=== PATIENT | male | born 1980 | race Two or more races ===

== ENCOUNTER 2020-10-04 14:28 | Emergency (ER) | payer MEDICAID, SELFPAY ==
[2020-10-04 14:29] VITALS: BP 115/77; PULSE 95; RESP 18; TEMP 36.6; O2SAT 99; BMI 25.8
--- NOTE | 2020-10-04 14:30 | CT_ITS ---
PROCEDURE: CT HEAD/BRAIN WO CON CLINICAL INDICATION: head injury, LOC Wall in a patient head. Patient states no loss consciousness. There is a left scalp laceration/knot. COMPARISON: No exams were available for comparison TECHNIQUE: Axial images obtained. All CT scans at the facility use one or more dose reduction, viz: automated exposure control, ma/kV adjustment per patient size (including targeted exams where dose is matched to indication, i.e. head), or iterative reconstruction technique. FINDINGS: There is extensive motion without accentuates bony or artifact at the skull base and lower brain. There is no hydrocephalus. There is no intracranial hemorrhage. There is no intracranial mass. There is no CT evidence of acute infarct. (Clinical exam and MRI are more sensitive for detection of infarct.) There is a large left scalp hematoma there is no underlying skull fracture. There is no CT evidence of contusion in the brain. There is no calvarial fracture. IMPRESSION: Large left scalp hematoma without underlying acute abnormality. Dictated by: More Lopez 10/04/2020 14:55 More Lopez in [place] 10/04/2020 14:55
--- NOTE | 2020-10-04 14:41 | [facility].EDGENADL ---
ED Disposition Clinical Impression: Closed head injury Qualifiers: Encounter type: initial encounter Qualified Code(s): S09.90XA - Unspecified injury of head, initial encounter Scalp laceration Qualifiers: Encounter type: initial encounter Qualified Code(s): S01.01XA - Laceration without foreign body of scalp, initial encounter Disposition: Home, Self-Care Condition on Discharge: Good Instructions: DI for Concussion, DI for Laceration Repair Additional Instructions: You have been evaluated for head injury, scalp laceration. Please have sunitha removed in 7 to 10 days. You also have a concussion, closed head injury. Please avoid activities that cause headache. Take Tylenol and Motrin. Follow-up with your primary care doctor in 1 to 2 days. Return to the emergency department for any new or worsening symptoms. Referrals: Provider,Referral, [Primary Care Provider] - Time of Disposition: 14:45 - Critical Care Critical Care Time: No Attestation: On , the high probability of a clinically significant, sudden or life threatening deterioration of the following system(s) required my full and direct attention, intervention and personal management. The time I documented below is in addition to time spent performing reported procedures but includes the following listed in this critical care notation. Medical Decision Making - Medical Records Medical records reviewed: Yes: I reviewed the patient's medical records. - Robinson Inquiry Pt receiving controlled substance: No Vital Signs: 10/04/20 14:29 10/04/20 14:54 Temperature 97.8 F Temperature Source Oral Pulse Rate [Left Radial] 95 H 94 H Respiratory Rate 18 Blood Pressure [Right Arm] 115/77 126/90 Blood Pressure Mean [Right Arm] 89 102 Blood Pressure Source [Right Arm] Automatic Cuff Automatic Cuff Blood Pressure Position [Right Arm] Sitting Sitting 02 Sat by Pulse Oximetry 99 100 Oxygen Delivery Method Room Air Room Air Orders (Tests/Meds): ED MEDICATIONS Discontinued Medications Generic Name Dose Route Start Last Admin Trade Name Freq PRN Reason Stop Dose Admin Lidocaine HCl 5 ml 10/04/20 15:00 10/04/20 15:03 Lidocaine 1% 10ml Mdv SQ 10/04/20 15:01 5 ml ONCE ONE Administration Medical Decision Narrative: In summary this is a 40-year-old male presenting to the emergency department with head injury, scalp laceration. Patient clinically stable on arrival. Vital signs within normal limits. He has significant boggy nature to the left upper scalp. Concern for more significant injury. Will obtain noncontrast head CT. Last tetanus was within 1 year. Will not update today. Laceration copiously irrigated with normal saline. Repaired with 4 sunitha. Procedure well-tolerated. Head CT unremarkable. No intracranial bleed. No skull fracture. Patient counseled on concussion management. Instructed he will need to have sunitha removed in 7 to 10 days. Given return precautions. Stable for discharge. General Adult HPI - General Chief complaint: Wound/Laceration Stated complaint: laceration Time Seen by Provider: 10/04/20 14:41 Mode of Arrival: Family Vehicle Limitations: No Limitations Description of Symptoms (Recalled from ER Triage Doc. 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 Denies loc, c/o dizziness since. - History of Present Illness HPI narrative: 40-year-old male presenting to the emergency department with head injury. He was hanging a picture frame just prior to arrival when something fell off of the wall and struck him on the left upper scalp. He had immediate sharp pain. Now dull and throbbing. Had a laceration that was bleeding a large amount. His friend was able to apply pressure to get the bleeding to stop. Does not believe he lost consciousness. No other injuries obtained. Particularly no neck pain. No numbness or weakness in his arms. No visi
--- NOTE | 2020-10-04 14:43 | PC.NURSE ---
Pt with rad.
[2020-10-04 14:54] VITALS: BP 126/90; PULSE 94; O2SAT 100
[2020-10-04 16:09] VITALS: BP 115/79; PULSE 96; RESP 18; TEMP 36.6; O2SAT 100
== END 2020-10-04 16:09 | disposition home or self-care (01) ==
PROVIDERS: Emergency Provider Emergency Medicine
DX: S01.01XA Laceration without foreign body of scalp, initial encounter (principal); S09.90XA Unspecified injury of head, initial encounter; W22.8XXA Striking against or struck by other objects, initial encounter; Y92.019 Unspecified place in single-family (private) house as the place of occurrence of the external cause; F17.210 Nicotine dependence, cigarettes, uncomplicated
CPT/HCPCS: 12001; 70450; 99283

== ENCOUNTER 2020-10-20 18:42 | Emergency (ER) | payer MEDICAID, SELFPAY ==
[2020-10-20 19:08] VITALS: BP 129/86; PULSE 98; RESP 14; TEMP 36.6; O2SAT 99; BMI 25.7
[2020-10-20 19:18] VITALS: BP 000/00; PULSE 0; RESP 16; TEMP 36.6
== END 2020-10-20 19:19 | disposition home or self-care (01) ==
PROVIDERS: Emergency Provider Nurse Practitioner Family
DX: S01.01XD Laceration without foreign body of scalp, subsequent encounter (principal)